=== PATIENT | male | born 1980 | race African-American/Black ===

== ENCOUNTER 2016-12-25 08:55 | Emergency (ER) | payer SELFPAY ==
[2016-12-25] MEDS ORDERED: IBUPROFEN 800 MG TABLET PO STA (09:04)
[2016-12-25] MEDS ORDERED: AMOXICILLIN 250 MG CAPSULE PO STA (09:04)
[2016-12-25] MEDS ORDERED: AMOXICILLIN 250 MG CAPSULE PO ONE (09:07)
[2016-12-25] MEDS ORDERED: IBUPROFEN 800 MG TABLET PO ONE (09:08)
== END 2016-12-25 09:29 | disposition home or self-care (01) ==
DX: K04.7 Periapical abscess without sinus (principal)
CPT/HCPCS: 99283; A9270